=== PATIENT | female | born 1930 | race Caucasian/White ===

== ENCOUNTER 2016-09-29 19:06 | Emergency (ER) | payer MEDICARE, OTHER ==
[~2016-09-29] VITALS: Ht 152.4 cm; Wt 90.7 kg
[2016-09-29 19:11] VITALS: BP 126/74
== END 2016-09-29 20:05 | disposition left against medical advice (07) ==
LOC: ER 19:07
DX: Z53.21 Procedure and treatment not carried out due to patient leaving prior to being seen by health care provider (principal)
CPT/HCPCS: A4606; Z7610

== ENCOUNTER 2017-07-24 23:32 | Emergency (ER) | payer MEDICARE, BC ==
[~2017-07-24] VITALS: Ht 124.5 cm; Wt 64.9 kg
--- NOTE | 2017-07-24 23:41 | NUR ---
PT BIB [facility] WITH A C/O MILD SOB. PT ARRIVED WITH NC IN PLACE, BUT ON RA. PT IS SATURATING AT 90-91% ON RA. PT APPEARS TO BE SLIGHTLY SOB. PT PLACED ON 2L AND PLACE IN FOWLERS POSITION. PT IS S/P RUPTURED HERNIA SX ON LEFT ABD ON 07/10/17. PT HAS RAUL ON LEFT ABD WITH SLIGHTLY PINK SKIN. PT HAS J-FOX ON LT ABD. DOUBLE LUMEN PICC LINE IN RUE WITH TPN INFUSING. PT IS [place] SPEAKING ONLY. PT'S DAUGHTER IS AT THE BEDSIDE. PT IS ON THE MONITOR AND CONTINUOUS PULSE OX. DR. MCCLELLAN IS AT [facility] BEDSIDE EVALUATING THE PT.
--- NOTE | 2017-07-24 23:50 | NUR ---
IN AND OUT CATH DONE. APPROX 150 ML YELLOW URINE OUTPUT NOTED. SAMPLE OBTAINED AND SENT TO LAB.
--- NOTE | 2017-07-25 00:10 | NUR ---
BLOOD DRAW FROM PICC LINE IN PROGRESS AT THE BEDSIDE BY Marianna CARLSON RN/CHG. EATING DISORDER SPECIALIST IS AT THE BEDSIDE.
--- NOTE | 2017-07-25 00:11 | NUR ---
HOME VISITOR HOME BASE HEAD START WAS AT THE BEDSIDE, BUT WILL TAKE THE XRAY LATER IN CT, DUE TO BLOOD DRAW.
[2017-07-25] MEDS ORDERED: ACETAMINOPHEN ES 500 MG TABLET ONE (00:13)
[2017-07-25] MEDS ORDERED: IOHEXOL-350 100 ML VIAL IV ONE (00:15)
[2017-07-25] MEDS ORDERED: IV NS 0.9% 250 ML IV ONE (00:15)
[2017-07-25 00:21] LABS: BASOPHILS # (AUTO) 0.1 /CMM (0.0-0.2); BASOPHILS % (AUTO) 0.8 % (0.0-2.0); EOSINOPHILS # (AUTO) 0.2 /CMM (0.0-0.7); EOSINOPHILS % (AUTO) 1.8 % (0.0-6.0); HEMATOCRIT 34 % (33-45); HEMOGLOBIN 11.3 g/dL (11.5-14.8); LYMPHOCYTES % (AUTO) 20.6 % (20.0-44.0); MEAN CORPUSCULAR HEMOGLOBIN 31 PG (26.0-33.0); MEAN CORPUSCULAR HGB CONC 33 g/dl (31.0-36.0); MEAN CORPUSCULAR VOLUME 93 fL (82-100); MONOCYTES # (AUTO) 0.9 /CMM (0.1-1.30); MONOCYTES % (AUTO) 9.2 % (2.0-12.0); NEUTROPHILS # (AUTO) 6.6 /CMM (1.8-8.9); NEUTROPHILS % (AUTO) 67.6 % (43.0-81.0); PLATELET COUNT (AUTO) 326 /CMM (150-450); RDW COEFFICIENT OF VARIATION 15.7 (11.5-15.0); RED BLOOD CELL COUNT(AUTO) 3.67 MIL/uL (4.0-5.2); WHITE BLOOD COUNT (AUTO) 9.8 K/uL (4.3-11.0)
[2017-07-25] MEDS ORDERED: ACETAMINOPHEN 325 MG TABLET PO ONE (00:30)
--- NOTE | 2017-07-25 00:34 | NUR ---
CXR DONE AT THE BEDSIDE.
[2017-07-25 00:40] LABS: APPEARANCE,URINE CLEAR (CLEAR); BILIRUBIN,URINE NEGATIVE (NEGATIVE); BLOOD, URINE TRACE Ery/uL (NEGATIVE); COLOR,URINE YELLOW (YELLOW); KETONES,URINE NEGATIVE (NEGATIVE); LEUKOCYTE ESTERASE ,URINE NEGATIVE (NEGATIVE); NITRITE, URINE NEGATIVE (NEGATIVE); PH,URINE 7.5 (5.0-8.0); PROTEIN,URINE NEGATIVE (NEGATIVE); UGLUCOSE NEGATIVE (NEGATIVE); UROBILINOGEN,URINE 0.2 EU/dL (0.2)
[2017-07-25 00:41] LABS: TROPONIN I 0.026 ng/mL (0.00-0.056)
[2017-07-25 00:42] LABS: CALCIUM, SERUM 8.8 mg/dL (8.5-10.1); CARBON DIOXIDE 30 mmol/L (21-32); CHLORIDE 110 mmol/L (98-107); CREATININE 0.7 mg/dL (0.6-1.3); GLUCOSE 110 mg/dL (74-106); POTASSIUM 3.6 mmol/L (3.5-5.1); SODIUM SERUM 145 mmol/L (136-145); UREA NITROGEN, BLOOD 15 mg/dL (7-18)
[2017-07-25 00:46] LABS: BACTERIA,URINE None seen /HPF (None Seen); RBC,URINE 0-2 /HPF (0-2); SQUAMOUS EPITHELIAL CELL,UR Few /HPF (None Seen); WBC,URINE 0-2 /HPF (0-3)
[2017-07-25 00:48] LABS: ALANINE AMINOTRANSFERASE 18 U/L (12-78); ALKALINE PHOSPHATASE 107 U/L (46-116); ASPARTATE AMINOTRANSFERASE 19 U/L (15-37); B-TYPE NATRIURETIC PEPTIDE 431 PG/ML (0-125); BILIRUBIN,TOTAL 0.3 mg/dL (0.2-1.0); TOTAL PROTEIN, SERUM 6.5 g/dL (6.4-8.2)
--- NOTE | 2017-07-25 00:49 | NUR ---
PT LEFT FOR CT VIA [facility]. PT'S TPA STOPPED.
--- NOTE | 2017-07-25 01:10 | NUR ---
PT RETURNED FROM CT VIA GURNEY. PT WAS RECONNECTED TO THE TPA TO THE PURPLE PORT IN RUE PICC LINE. PT IS ON THE MONITOR AND CONTINUOUS PULSE OX.
--- NOTE | 2017-07-25 01:36 | NUR ---
PT APPEARS TO BE RESTING COMFORTABLY WITH NO S/S OF PAIN OR DISTRESS. VSS.
--- NOTE | 2017-07-25 02:41 | NUR ---
CALLED [facility] [phone]. RUN#[id number]
--- NOTE | 2017-07-25 03:05 | NUR ---
[facility] EMT'S ARRIVED. REPORT GIVEN. VSS. PT'S FAMILY IS AT THE BEDSIDE. PT IS LEAVING VIA AMBULANCE. Patient discharged to home in stable condition. Written and verbal after care instructions given. Patient's daughter verbalizes understanding of instruction. pt's daughter stated that the pt has an incentive spirometer and they know how to use it.
[2017-07-25 03:07] VITALS: BP 151/69
== END 2017-07-25 03:08 | disposition home or self-care (01) ==
LOC: ER 23:33
DX: J98.11 Atelectasis (principal); R91.1 Solitary pulmonary nodule; G89.29 Other chronic pain; F17.200 Nicotine dependence, unspecified, uncomplicated; Z98.890 Other specified postprocedural states
CPT/HCPCS: 36415; 71010; 71275; 80048; 80076; 81001; 83605; 83880; 84484; 85025; 87040 ×2; 93005; 99285; A4606; J7050; Q9967; 81000-TC; Z7610